=== PATIENT | male | born 2005 | race African-American/Black ===

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

== ENCOUNTER 2024-08-10 13:17 | Emergency (ER) | payer SELFPAY ==
--- NOTE | 2024-08-10 13:25 | ED.PDOC ---
General HPI Comments 19 y/o M, brought in by ambulance presents to the ED for CC of body pain. Patient states, that he has been experiencing body-aches with associated symptoms of nausea, vomiting ,and diarrhea xdays. Patient comments on, new symptoms of testicular pain and swelling starting today (08/10/24). Patient relays, that he tried masturbating to relieve new on set symptoms; provided no relief relays sperm to be odd in color. Patient does endorse having sexual in tercourse a couple of days ago and is unsure if symptoms my be caused by this. Patient denies hematuria, dysuria, SOB, or flank pain. No other symptoms or modifying factors at this time. Time Seen by MD: 13:20 Primary Care Provider: GABBY Reviewed notes: Nurses Notes, Business Change Manager Notes, Medications, Allergies Allergies: Coded Allergies: Penicillins (Verified Allergy, Unknown, 05/22/22) Home Meds Active Scripts Ibuprofen Micronized (MOTRIN TABLET) 600 Mg Tb, 600 MG PO TID PRN for 3 Days, #9 TAB *Black box warning-NSAIDS can increase risk of WI & hypertension, GI irritation, ulceration, bleed, perferation. Do not use post cardiac surgery. Use short duration/lowest effective dose. Prov:CURT SAUCEDA MD 08/10/24 Oxycodone W/ Acetaminophen (Percocet 5/325MG) 1 Tab Tb, 1 TAB PO BID for 7 Days, #14 TAB Prov:MICHELE VERONICA MD 06/25/22 Hydrocodone-Acetaminophen (Hydrocodone/Acetaminophen 5-325 mg) 1 Tab Tab, 1 TAB PO BID for 7 Days, #14 TAB Prov:MICHELE VERONICA MD 06/25/22 Reported Medications Acetaminophen W/ Codeine (Tylenol/Codeine #3) #3 Tab 10/30/11 Information Source: Patient, Emergency Med Personnel Mode of Arrival: EMS Severity: Mild Timing: Days Duration: Intermittent Prehospital treatment: None Onset: Following sexual contact Symptoms: None History of: None Location: None Penile discharge: None Modifying factors: None associated signs and symptoms: None Past Medical History PAST MEDICAL HISTORY: Denies Surgical History: Denies all surgeries Family History Family History: Reviewed,noncontributory to illness Social History Smoker: Non-Smoker Alcohol: Denies ETOH Use Drugs: Denies Drug Use Lives In: Home Constitutional: denies: chills, diaphoresis, fatigue, fever, malaise, sweats, weakness, others EENTM: denies: blurred vision, double vision, ear bleeding, ear discharge, ear drainage, ear pain, ear ringing, eye pain, eye redness, hearing loss, mouth pain, mouth swelling, nasal discharge, nose bleeding, nose congestion, nose pain, photophobia, tearing, throat pain, throat swelling, voice changes, others Respiratory: denies: cough, hemoptysis, orthopnea, SOB at rest, shortness of breath, SOB with excertion, stridor, wheezing, others Cardiovascular: denies: chest pain, dizzy spells, diaphoresis, Dyspnea on exertion, edema, irregular heart beat, left arm pain, lightheadedness, palpitations, PND, syncope, others Gastrointestinal: denies: abdomen distended, abdominal pain, blood streaked bowels, constipated, diarrhea, dysphagia, difficulty swallowing, hematemesis, melena, nausea, poor appetite, poor fluid intake, rectal bleeding, rectal pain, vomiting, others Genitourinary: reports: testicle pain, testicle swelling; denies: burning, dysuria, flank pain, frequency, hematuria, incontinence, penile discharge, penile sore, pain, urgency, others Neurological: denies: dizziness, fainting, headache, left sided numbness, left sided weakness, numbness, paresthesia, pre-existing deficit, right sided numbness, right sided weakness, seizure, speech problems, tingling, tremors, weakness, others Musculoskeletal: denies: back pain, gout, joint pain, joint swelling, muscle pain, muscle stiffness, neck pain, others Integumetry: denies: bruises, change in color, change in hair/nails, dryness, laceration, lesions, lumps, rash, wounds, others Allergic/Immunocompromised: denies: Difficulty Healing, Frequent Infections, Hives, Itching, others Hematologic/Lymphatic: denies: anemia, blood clots, easy bleeding, easy bruising, swollen glands, others Endocrine: denies: excessive hunger, excessive sweating, excessive thirst, excessive urination, flushing, intolerance to cold, intolerance to heat, unexplained weight gain, unexplained weight loss, others Psychiatric: denies: anxiety, bipolar disorder, depression, hopeless, panic disorder, schizophrenia, sleepless, suicidal, others All Other Systems: Reviewed and Negative Physical Exam General Appearance: Moderate Distress HEENT: Normal ENT Inspection, Pharynx Normal, TMs Normal Neck: Full Range of Motion, Non-Tender, Normal, Normal Inspection Respiratory: Chest Non-Tender, Lungs Clear, No Accessory Muscle Use, No Respiratory Distress, Normal Breath Sounds Cardiovascular: No Edema, No JVD, No Murmur, No Gallop, Normal Peripheral Pulses, Regular Rate/Rhythm Breast Exam: Deferred Gastrointestinal: No Organomegaly, Non Tender, No Pulsatile Mass, Normal Bowel Sounds, Soft Genitalia: Deferred Pelvic: Deferred Rectal: Deferred Extremities: No calf tenderness, Normal capillary refill, Normal inspection, Normal range of motion, Non-tender, No pedal edema Musculoskeletal : Apperance: Normal Neurologic: Alert, procedural nurse II-XII nml as Tested, No Motor Deficits, Normal Affect, Normal Mood, No Sensory Deficits Cerebellar Function: Normal Reflexes: Normal Skin: Dry, Normal Color, Warm Peripheral Pulses: 3+ Radial (R), 3+ Radial (L) Lymphatic: No Adenopathy Was a procedure done? Was a procedure done?: No Differential Diagnosis Kidney stone (Female): Musculoskeletal pain, Urinary obstruction, Urolithiasis Penile/Scrotal: STD, UTI, Hydrocele, Testicular Torsion, Urolithiasis, Urinary Retention X-Ray, Labs, Meds, VS Patient alert. Complaining of testicular pain. Vitals stable. Answering all questions. No sign of any distress. Moving all extremities. Abdomen is soft nontender. Was given prescription of Motrin. Explained to the patient. Was told to follow up with his primary care physician. Was told to come back if there is any problem. Time of 1ST Reevaluation: 13:50 Reevaluation 1ST: Improved Patient Education/Counseling: Diagnosis, Treatment Family Education/Counseling: No Family Present Departure 1 Departure Time of Disposition: 15:02 Impression: Primary Impression: Sickle cell disease Qualified Codes: D57.00 - Hb-SS disease with crisis, unspecified Additional Impression: Inguinal strain Qualified Codes: S76.219S - Strain of adductor muscle, fascia and tendon of unspecified thigh, sequela Disposition: 07 LEFT AWOL/ELOPED Admit to: Med Surg Condition: Guarded e-Prescriptions Ibuprofen Micronized (MOTRIN TABLET) 600 Mg Tb 600 MG PO TID PRN for 3 Days, #9 TAB *Black box warning-NSAIDS can increase risk of WI & hypertension, GI irritation, ulceration, bleed, perferation. Do not use post cardiac surgery. Use short duration/lowest effective dose. Prov: CURT SAUCEDA MD 08/10/24 Critical Care Note Critical Care Time?: No Stability Stability form required: No Heart Score Heart Score: Heart Score Response (Comments) Value History N/A 0 EKG N/A 0 Age N/A 0 Risk Factors N/A 0 Troponin N/A 0 Total 0 I personally scribed for CURT SAUCEDA MD ([email or web address]) on 08/10/24 at 13:25. Electronically submitted by Cynthia Abdi ([employer]). I personally scribed for CURT SAUCEDA MD ([email or web address]) on 08/10/24 at 13:35. Electronically submitted by Cynthia Abdi ([employer]). I personally scribed for CURT SAUCEDA MD ([email or web address]) on 08/10/24 at 13:35. Electronically submitted by Cynthia Abdi ([email or web address]). CURT SAUCEDA MD Aug 10, 2024 13:25
[2024-08-10] MEDS ORDERED: KETOROLAC TROMETH 60MG/2ML VIAL IM ONE (13:30)
[2024-08-10] MEDS ORDERED: IBU600T PO (15:02)
== END 2024-08-10 13:50 | disposition left against medical advice (07) ==
LOC: EDBD 13:17 → ER 13:17
DX: D57.00 Hb-SS disease with crisis, unspecified (principal); S39.011A Strain of muscle, fascia and tendon of abdomen, initial encounter; Z88.0 Allergy status to penicillin; Z79.899 Other long term (current) drug therapy; X58.XXXA Exposure to other specified factors, initial encounter; Y93.89 Activity, other specified; Y92.89 Other specified places as the place of occurrence of the external cause; Y99.8 Other external cause status

== ENCOUNTER 2024-08-10 15:52 | Inpatient (IN) | payer SELFPAY ==
[~2024-08-10] VITALS: Ht 182.9 cm; Wt 27.2 kg
[~2024-08-10 15:52] MED LIST changes: +IBU600T PO
--- NOTE | 2024-08-10 16:19 | ED.PDOC ---
History of Present Illness HPI Comments 19-year-old male presents with a chief complaint of testicle pain and fatigue x 1 week. Patient reports that his pain is localized to his bilateral testicles, is made worse with movement and palpation of testicles, and rates his pain a 9/10. Patient reports that he has sickle cell anemia and is currently feeling extremely tired. Patient denies any blood transfusions in the past. No other symptoms or modifying factors present at this time. Chief Complaint: Testicle Pain Time Seen by MD: 16:14 Primary Care Provider: GABBY Reviewed Notes: Nurses Notes, Medications, Allergies Allergies: Coded Allergies: Penicillins (Verified Allergy, Unknown, 05/22/22) Home Meds Active Scripts Ibuprofen Micronized (MOTRIN TABLET) 600 Mg Tb, 600 MG PO TID PRN for 3 Days, #9 TAB *Black box warning-NSAIDS can increase risk of NV & hypertension, GI irritation, ulceration, bleed, perferation. Do not use post cardiac surgery. Use short duration/lowest effective dose. Prov:CURT SAUCEDA MD 08/10/24 Oxycodone W/ Acetaminophen (Percocet 5/325MG) 1 Tab Tb, 1 TAB PO BID for 7 Days, #14 TAB Prov:MICHELE VERONICA MD 06/25/22 Hydrocodone-Acetaminophen (Hydrocodone/Acetaminophen 5-325 mg) 1 Tab Tab, 1 TAB PO BID for 7 Days, #14 TAB Prov:MICHELE VERONICA MD 06/25/22 Reported Medications Acetaminophen W/ Codeine (Tylenol/Codeine #3) #3 Tab 10/30/11 Information Source: Patient Mode of Arrival: Ambulatory Severity: Moderate Timing: Weeks Duration: Since onset Prehospital treatment: None Past Medical History PAST MEDICAL HISTORY: Anemia Past Medical History (Other): SICKLE CELL Surgical History: Denies all surgeries Family History Family History: Reviewed,noncontributory to illness Social History Smoker: Cigarettes Alcohol: Occasionally Drugs: Marijuana Lives In: Home Constitutional: reports: fatigue; denies: chills, diaphoresis, fever, malaise, sweats, weakness, others EENTM: denies: blurred vision, double vision, ear bleeding, ear discharge, ear drainage, ear pain, ear ringing, eye pain, eye redness, hearing loss, mouth pain, mouth swelling, nasal discharge, nose bleeding, nose congestion, nose pain, photophobia, tearing, throat pain, throat swelling, voice changes, others Respiratory: denies: cough, hemoptysis, orthopnea, SOB at rest, shortness of breath, SOB with excertion, stridor, wheezing, others Cardiovascular: denies: chest pain, dizzy spells, diaphoresis, Dyspnea on exertion, edema, irregular heart beat, left arm pain, lightheadedness, palpit ations, PND, syncope, others Gastrointestinal: denies: abdomen distended, abdominal pain, blood streaked b owels, constipated, diarrhea, dysphagia, difficulty swallowing, hematemesis, melena, nausea, poor appetite, poor fluid intake, rectal bleeding, rectal pain, vomiting, others Genitourinary: reports: testicle pain; denies: burning, dysuria, flank pain, frequency, hematuria, incontinence, penile discharge, penile sore, pain, testicle swelling, urgency, others Neurological: denies: dizziness, fainting, headache, left sided numbness, left sided weakness, numbness, paresthesia, pre-existing deficit, right sided numbness, right sided weakness, seizure, speech problems, tingling, tremors, weakness, others Musculoskeletal: denies: back pain, gout, joint pain, joint swelling, muscle pain, muscle stiffness, neck pain, others Integumetry: denies: bruises, change in color, change in hair/nails, dryness, laceration, lesions, lumps, rash, wounds, others Allergic/Immunocompromised: denies: Difficulty Healing, Frequent Infections, Hives, Itching, others Hematologic/Lymphatic: denies: anemia, blood clots, easy bleeding, easy bruising, swollen glands, others Endocrine: denies: excessive hunger, excessive sweating, excessive thirst, excessive urination, flushing, intolerance to cold, intolerance to heat, unexplained weight gain, unexplained weight loss, others Psychiatric: denies: anxiety, bipolar disorder, depression, hopeless, panic di sorder, schizophrenia, sleepless, suicidal, others All Other Systems: Reviewed and Negative Physical Exam General Appearance: Moderate Distress HEENT: Pale Conjuntivae (L), Pale Conjuntivae (R), Pharynx Normal, TMs Normal Neck: Full Range of Motion, Non-Tender, Normal, Normal Inspection Respiratory: Chest Non-Tender, Lungs Clear, No Accessory Muscle Use, No Respiratory Distress, Normal Breath Sounds Cardiovascular: No Edema, No JVD, No Murmur, No Gallop, Normal Peripheral Pulses, Regular Rate/Rhythm Breast Exam: Deferred Gastrointestinal: No Organomegaly, Non Tender, No Pulsatile Mass, Normal Bowel Sounds, Soft Genitalia: Deferred Pelvic: Deferred Rectal: Deferred Extremities: No calf tenderness, Normal capillary refill, Normal inspection, Normal range of motion, Non-tender, No pedal edema Musculoskeletal : Apperance: Normal Neurologic: Alert, linux kernel developer II-XII nml as Tested, Motor Weakness, Normal Affect, Normal Mood, No Sensory Deficits Cerebellar Function: Normal Reflexes: Normal Skin: Dry, Pallor, Warm Lymphatic: No Adenopathy Was a procedure done? Was a procedure done?: No Differential Dx Considerations may include: Sickle cell crisis, UTI X-Ray, Labs, Meds, VS Vital Signs Date Time Temp Pulse Resp B/P (MAP) Pulse Ox O2 Delivery O2 Flow Rate FiO2 08/10/24 16:55 99.2 67 18 115/76 (89) 97 Lab Test 08/10/24 16:31 Range/Units White Blood Count 14.2 H 4.4-10.8 10^3/uL Red Blood Count 3.77 L 4.5-5.90 10^6/uL Hemoglobin 10.6 L 13.5-17.5 g/dL Hematocrit 31.4 L 41.0-53.0 % Mean Corpuscular Volume 83.3 80.0-100.0 fL Mean Corpuscular Hemoglobin 28.1 28.0-32.0 pg Mean Corpuscular Hemoglobin Concent 33.7 32.0-36.0 g/dL Red Cell Distribution Width 16.2 H 11.8-14.3 % Platelet Count 285 140-450 10^3/uL Mean Platelet Volume 9.1 6.9-10.8 fL Neutrophils (%) (Auto) 57.9 37.0-80.0 % Lymphocytes (%) (Auto) 22.9 10.0-50.0 % Monocytes (%) (Auto) 16.9 H 0.0-12.0 % Eosinophils (%) (Auto) 1.6 0.0-7.0 % Basophils (%) (Auto) 0.7 0.0-2.0 % Neutrophils # (Auto) 8.3 1.6-8.6 10 ^3/uL Lymphocytes # (Auto) 3.3 0.4-5.4 10 ^3/uL Monocytes # (Auto) 2.4 H 0-1.3 10 ^3/uL Eosinophils # (Auto) 0.2 0-0.8 10 ^3/uL Basophils # (Auto) 0.1 0-0.2 10 ^3/uL Nucleated Red Blood Cells 0.2 % Reticulocyte Count (auto) 0.31 L 0.5-1.5 % Sodium Level 133 L 136-145 mmol/L Potassium Level 4.3 3.5-5.1 mmol/L Chloride Level 99 98-107 mmol/L Carbon Dioxide Level 26 20-31 mmol/L Anion Gap 8 5-15 Blood Urea Nitrogen 21 9-23 mg/dL Creatinine 1.32 H 0.700-1.30 mg/dL Glomerular Filtration Rate Calc 79 >90 mL/min BUN/Creatinine Ratio 15.9 10.0-20.0 Serum Glucose 94 74-106 mg/dL Calcium Level 9.4 8.7-10.4 mg/dL Testicular Ultrasound Impression: Bilateral varicoceles otherwise unremarkable study The patient's CBC shows an elevated white blood cell count of 14.2 The rest of the CBC shows anemia with a hemoglobin of 10.6 and hematocrit of 31.4 The platelets are 285 The reticulocyte count is 0.31 At this time, the patient is being admitted with a diagnosis of sickle cell crisis The patient was given morphine for the pain and Zofran for the nausea The patient was being given normal saline at 1 L bolus Time of 1ST Reevaluation: 16:44 Reevaluation 1ST: Unchanged Patient Education/Counseling: Diagnosis, Treatment, Prognosis Family Education/Counseling: Diagnosis, Treatment, Prognosis Departure 1 Departure Time of Disposition: 18:58 Impression: Primary Impression: Sickle cell pain crisis Disposition: ADMITTED INPATIENT Admit to: Med Surg Condition: Fair Critical Care Note Critical Care Time?: No Stability Stability form required: No Heart Score Heart Score: Heart Score Response (Comments) Value History N/A 0 EKG N/A 0 Age N/A 0 Risk Factors N/A 0 Troponin N/A 0 Total 0 I personally scribed for CALLIE NEWMAN MD ([email or web address]) on 08/10/24 at 16:19. Electronically submitted by Obi Gómez ([email or web address]). I personally scribed for CALLIE NEWMAN MD ([email or web address]) on 08/10/24 at 18:31. Electronically submitted by Obi Gómez ([email or web address]). CALLIE NEWMAN MD Aug 10, 2024 16:19
[2024-08-10 17:05] LABS: Chloride 99 mmol/L (98-107); Potassium 4.3 mmol/L (3.5-5.1)
[2024-08-10 17:06] LABS: Anion Gap 8 (5-15); Calcium 9.4 mg/dL (8.7-10.4); Carbon Dioxide 26 mmol/L (20-31)
[2024-08-10 17:11] LABS: BUN/Creatinine Ratio 15.9 (10.0-20.0); Blood Urea Nitrogen 21 mg/dL (9-23); Glucose 94 mg/dL (74-106)
[2024-08-10 17:14] LABS: Sodium 133 mmol/L (136-145)
[2024-08-10 17:21] LABS: Basophils # (auto) 0.1 10 ^3/uL (0-0.2); Basophils % (auto) 0.7 % (0.0-2.0); Eosinophils # (auto) 0.2 10 ^3/uL (0-0.8); Eosinophils % (auto) 1.6 % (0.0-7.0); Hematocrit 31.4 % (41.0-53.0); Hemoglobin 10.6 g/dL (13.5-17.5); Lymphocytes # (auto) 3.3 10 ^3/uL (0.4-5.4); Lymphocytes % (auto) 22.9 % (10.0-50.0); Mean Corpuscular Hemoglobin 28.1 pg (28.0-32.0); Mean Corpuscular Hgb Conc. 33.7 g/dL (32.0-36.0); Mean Corpuscular Volume 83.3 fL (80.0-100.0); Monocytes # (auto) 2.4 10 ^3/uL (0-1.3); Monocytes % (auto) 16.9 % (0.0-12.0); Neutrophils # (auto) 8.3 10 ^3/uL (1.6-8.6); Neutrophils % (auto) 57.9 % (37.0-80.0); Nucleated Red Blood Cells % 0.2 %; Platelet Count (auto) 285 10^3/uL (140-450); Red Blood Cells 3.77 10^6/uL (4.5-5.90); Red Cell Distribution Width 16.2 % (11.8-14.3); White Blood Cell 14.2 10^3/uL (4.4-10.8)
--- NOTE | 2024-08-10 17:47 | DVH ---
CLINICAL INFORMATION: 19 years old, Male; pain. TECHNIQUE: Grayscale sonographic imaging of the testicles and scrotal contents was performed , zina antolin by color doppler technique. Duplex doppler ultrasound of both testicles was performed. COMPARISON: None FINDINGS: Echogenicity of the kidneys is within normal limits bilaterally. Vascular flow in the kidneys appears to be normal. Right testicle measures 4 X 2.3 x 2.55 cm there are no focal lesions in the right kidney There appears to be a right inguinal varicocele that response to Valsalva maneuver Left testicle measures 3.45 x 2.32.5 cm there is normal vascular flow left epididymis measures 1.1 cm there appears to be a varicocele adjacent to the inferior pole of the left kidney right epididymis m easures 1.4 cm. . IMPRESSION: 1. Bilateral varicoceles otherwise unremarkable study
[2024-08-10] MEDS: ONDANSETRON HCL 4 MG/2 ML VIAL IV ONE ×2 (21:01→21:16)
[2024-08-10] MEDS: MORPHINE SULFATE 4 MG/ML SYR/VIAL IV ONE ×2 (21:17→22:39)
[2024-08-10] MEDS: SODIUM CHLORIDE 0.9% 1,000 ML IV ONE (21:20)
[2024-08-10 21:27] VITALS: PULSE 85; RESP 22; O2SAT 98
--- NOTE | 2024-08-10 23:26 | DVHHPRES ---
History of Present Illness Resident Creating Document: SANDIE MACARIO RESDIENT History of Present Illness This is a 19-year-old male with past medical history of sickle cell anemia came to the hospital due to right testis pain. The patient, he feels more weak, generalized body pain, back pain, and this has been since 1 week which has increased since 2 days. He also reports nausea, vomiting, shortness of breaths dysuria, frequency and urgency. Per patient he has been admitted to the hospital multiple times due to being crisis, but has not been transfused yet. He is family history of sickle cell anemia in father and mother. On physical exam right testis is more swollen and tender. ultrasound shows bilateral varicoceles, otherwise not remarkable sinus. PMHx: Sickle cell anemia Family history: Mother and father has sickle cell anemia Social history: Patient smokes cigarette, drink occasionally and smokes marijuana Home medication: Do not taking any medicine Allergic history: Penicillin Review of Systems Review of Systems General: Reports generalized body pain HEENT: No headaches, visiual changes, hearing loss, tinnitus, nasal congestion and discharge, and sore throat. Cardiovascular: Denies chest pain, palpitations, dyspnea on exertion, orthopnea, or claudication. Respiratory: Reports shortness of breath Gastrointestinal: Denies nausea, vomiting, dysphagia, odynophagia, heartburn, abdominal pain, flatulence, bloating, diarrhea, constipation, change in stool, or blood in stool. Genitourinary: Reports testicular pain Endocrine: No heat or cold intolerance, polydipsia, polyuria, and polyphagia. Neurological: No dizziness, extremity weakness and numbness, tremors, gait disturbance, seizures, and memory impairment. Psychiatric: Denies depression, anxiety,or insomnia. Musculoskeletal: Denies neck pain, stiffness and swelling, back pain, muscle weakness, joint pain, stiffness, swelling, or limited range of motion. Skin: No rashes, itching, skin lesion, changes in hair, nail, skin texture and breast. Hematologic/Lymphatic: Denies easy bruising, bleeding tendencies, or lymph node enlargement. Allergies: Coded Allergies: Penicillins (Verified Allergy, Unknown, 05/22/22) Exam Vital Signs Vital Signs Date Time Temp Pulse Resp B/P (MAP) Pulse Ox O2 Delivery O2 Flow Rate FiO2 08/10/24 21:27 85 22 98 Room Air* 0 21 08/10/24 21:17 134/74 08/10/24 21:12 97.9 97.9 Exam General Appearance: Alert, Oriented X3, Cooperative, No acute distress HEENT: Atraumatic, PERRLA, EOMI, Mucous membrane moist/pink Respiratory: Clear to auscultation, Normal air movement Cardiovascular: Regular rate, Normal S1, Normal S2, No murmurs, no chest wall tenderness Abdominal: Right testis is swollen and tender to palpation Extremities: No clubbing, No cyanosis, No edema, Normal pulses, No tenderness/swelling Skin: No rashes, No breakdown, No significant lesion Neuro: Normal gait, Normal speech, Strength at 5/5 X4 ext, Normal tone, Sensation intact, Cranial nerves 3-12 NL, Reflexes 2+ Psych/Mental Status: Mental status NL, Mood NL Labs/Xrays Labs Test 08/10/24 16:31 Range/Units White Blood Count 14.2 H 4.4-10.8 10^3/uL Red Blood Count 3.77 L 4.5-5.90 10^6/uL Hemoglobin 10.6 L 13.5-17.5 g/dL Hematocrit 31.4 L 41.0-53.0 % Mean Corpuscular Volume 83.3 80.0-100.0 fL Mean Corpuscular Hemoglobin 28.1 28.0-32.0 pg Mean Corpuscular Hemoglobin Concent 33.7 32.0-36.0 g/dL Red Cell Distribution Width 16.2 H 11.8-14.3 % Platelet Count 285 140-450 10^3/uL Mean Platelet Volume 9.1 6.9-10.8 fL Neutrophils (%) (Auto) 57.9 37.0-80.0 % Lymphocytes (%) (Auto) 22.9 10.0-50.0 % Monocytes (%) (Auto) 16.9 H 0.0-12.0 % Eosinophils (%) (Auto) 1.6 0.0-7.0 % Basophils (%) (Auto) 0.7 0.0-2.0 % Neutrophils # (Auto) 8.3 1.6-8.6 10 ^3/uL Lymphocytes # (Auto) 3.3 0.4-5.4 10 ^3/uL Monocytes # (Auto) 2.4 H 0-1.3 10 ^3/uL Eosinophils # (Auto) 0.2 0-0.8 10 ^3/uL Basophils # (Auto) 0.1 0-0.2 10 ^3/uL Nucleated Red Blood Cells 0.2 % Reticulocyte Count (auto) 0.31 L 0.5-1.5 % Sodium Level 133 L 136-145 mmol/L Potassium Level 4.3 3.5-5.1 mmol/L Chloride Level 99 98-107 mmol/L Carbon Dioxide Level 26 20-31 mmol/L Anion Gap 8 5-15 Blood Urea Nitrogen 21 9-23 mg/dL Creatinine 1.32 H 0.700-1.30 mg/dL Glomerular Filtration Rate Calc 79 >90 mL/min BUN/Creatinine Ratio 15.9 10.0-20.0 Serum Glucose 94 74-106 mg/dL Calcium Level 9.4 8.7-10.4 mg/dL Assessment/Plan Assessment/Plan Sickle cell crisis History of sickle cell anemia IV fluid IV morphine p.r.n. Tylenol next Testicular pain, possible orchitis Bilateral varicoceles IV antibiotic Marijuana use disorder Current smoker DIET: Regular diet CODE STATUS: Full code DISPOSITION: Med surge Patient's status and paln discussed with the patient. Case discussed with Dr. Bolton. Plan discussed with: Patient, Other My Orders Orders - SANDIE MACARIO RESDISARTHAK Procedure Category Date Status Time Admit ADMIT 08/10/24 Transmitted 23:25 Stat Ekg For Chest NENITA 08/10/24 Transmitted Pain 23:25 Notify Of Changes NENITA 08/10/24 Transmitted From Base 23:25 Date of Service: Aug 11, 2024 Billing Provider: CELSA BOLTON MD Common Visit Codes: [id number] INP/OBS CARE (HIGH) SANDIE MACARIO RESDIENT Aug 10, 2024 23:26 CELSA BOLTON MD Aug 14, 2024 18:20
[2024-08-11] MEDS: SODIUM CHLORIDE 0.9% 1,000 ML IV ONE ×2 (03:01→04:01)
[2024-08-11 03:43] LABS: Basophils # (auto) 0.1 10 ^3/uL (0-0.2); Basophils % (auto) 0.6 % (0.0-2.0); Eosinophils # (auto) 0.3 10 ^3/uL (0-0.8); Hematocrit 27.3 % (41.0-53.0); Hemoglobin 9.5 g/dL (13.5-17.5); Lymphocytes % (auto) 23.2 % (10.0-50.0); Mean Corpuscular Hemoglobin 28.2 pg (28.0-32.0); Mean Corpuscular Hgb Conc. 34.6 g/dL (32.0-36.0); Mean Corpuscular Volume 81.4 fL (80.0-100.0); Monocytes # (auto) 2.8 10 ^3/uL (0-1.3); Monocytes % (auto) 16.4 % (0.0-12.0); Neutrophils # (auto) 9.9 10 ^3/uL (1.6-8.6); Neutrophils % (auto) 57.8 % (37.0-80.0); Nucleated Red Blood Cells % 0.1 %; Platelet Count (auto) 276 10^3/uL (140-450); Red Blood Cells 3.36 10^6/uL (4.5-5.90); Red Cell Distribution Width 15.9 % (11.8-14.3); White Blood Cell 17.1 10^3/uL (4.4-10.8)
[2024-08-11 03:59] LABS: Albumin 3.9 g/dL (3.2-4.8); Alkaline Phosphatase 93 U/L (46-116); Anion Gap 10 (5-15); BUN/Creatinine Ratio 13.8 (10.0-20.0); Blood Urea Nitrogen 16 mg/dL (9-23); Calcium 9.3 mg/dL (8.7-10.4); Carbon Dioxide 23 mmol/L (20-31); Chloride 101 mmol/L (98-107); Glucose 89 mg/dL (74-106); Potassium 3.9 mmol/L (3.5-5.1); Total Protein 6.9 g/dL (5.7-8.2)
[2024-08-11 04:03] LABS: Alanine Aminotransferase 79 U/L (7-40); Aspartate Aminotransferase 61 U/L (13-40); Bilirubin, Total 1.4 mg/dL (0.2-1.0); Sodium 134 mmol/L (136-145)
[2024-08-11] MEDS: MORPHINE SULFATE 4 MG/ML SYR/VIAL IV PRN (04:57)
[2024-08-11] MEDS: cefTRIAXone 1GM/50ML D5W 50 ML IV ONE (04:57)
[2024-08-11] MEDS: cefTRIAXone 1GM/50ML D5W 50 ML IV SCH (04:58)
[2024-08-11] MEDS ORDERED: ACETAMINOPHEN 325 MG TAB PO PRN (06:00)
--- NOTE | 2024-08-11 06:16 | DVH ---
EXAM: XR Chest, 1 View CLINICAL INDICATION: Pneummonia TECHNIQUE: Frontal view of the chest. COMPARISON: CHEST XRAY 1 VIEW on DOS: 06/24/22, CXR1 on DOS: 06/24/22 FINDINGS: LUNGS AND PLEURAL SPACES: Unremarkable. No consolidation. No pneumothorax. HEART: Unremarkable. No cardiomegaly. MEDIASTINUM: Unremarkable. Normal mediastinal contour. BONES/JOINTS: Unremarkable. No acute fracture. OTHER FINDINGS: . None. . . .. IMPRESSION: No acute cardiopulmonary process.
[2024-08-11 07:28] LABS: COVID19 ANTIGEN SOFIA FIA NEGATIVE (NEGATIVE); Rapid Influenza A Negative (Negative); Rapid Influenza B Negative (Negative)
[2024-08-11 08:32] LABS: Hepatitis B Surface Antigen Negative (Negative)
[2024-08-11 08:40] VITALS: BP 107/68; PULSE 79; RESP 18; TEMP 98.1; O2SAT 98
[2024-08-11 08:57] LABS: Hepatitis A Ab IgM Negative; Hepatitis B Core IgM Negative (Negative); Hepatitis C Antibody Negative (Negative)
[2024-08-11 09:00] VITALS: BP 107/68; PULSE 79; RESP 18; TEMP 98.1; O2SAT 98
[2024-08-11 10:24] LABS: Urine Bacteria FEW /hpf (None Seen); Urine Blood Negative /uL (Negative); Urine Color Yellow (Yellow); Urine Protein, UAD Negative (Negative); Urine Specific Gravity 1.005 (1.001-1.035); Urine Squamous Epithelial Cell None Seen /hpf (<5); Urine Urobilinogen 2 mg/dL (Negative); Urine WBC 146 /HPF (0-3); Urine pH 6.5 (5.0-9.0)
[2024-08-11 10:25] LABS: Urine Clarity Cloudy (Clear)
[2024-08-11 10:33] LABS: Opiate Scree,Urine Neg (NEGATIVE)
[2024-08-11 10:34] LABS: Cannabinoid Screen, Urine Neg (NEGATIVE)
[2024-08-11 10:42] LABS: Amphetamine Screen, Urine Neg (NEGATIVE); Barbiturate Scree,Urine Neg (NEGATIVE); Benzodiazephine Screen, Urine Neg (NEGATIVE); Cocaine Screen, Urine Neg (NEGATIVE); Phencyclidine Screen, Urine Neg (NEGATIVE)
--- NOTE | 2024-08-11 11:03 | DVHPNRES ---
Progress Note Date Seen: Aug 11, 2024 Resident Creating Document: IVIS SOLANO RESIDENT Medical Necessity Reason Pt with a Central, PICC or Fol: No Medical Necessity Reason Bilateral scrotal swelling Subjective Review of Systems This is a 19-year-old homosexual male with a past medical history of sickle cell anemia presented to the ED with scrotal swelling. According to the patient the scrotal swelling started on the left side of the scrotum gradually increasing in size. The patient did not take it seriously and did nothing. Then the right scrotum became involved. Patient took Tylenol without much improvement and then few days later he started having generalized pain from his sickle cell pain crisis thus prompting him to come to the ED. Per patient he has been admitted to the hospital multiple times due to being crisis, but has not been transfused yet. He also reports nausea, vomiting, shortness of breaths dysuria, frequency and urgency. Patient also mentioned that he is sexually active and his last sexual encounter was a week and half ago. Initial vitals were temperature 99.2 pulse 67 respiratory 16 blood pressure 115/76. blood work revealed WBC of 14.2 with hemoglobin of 10.6. Blood sodium of 133 creatinine of 1.32 with GFR of 79. Total bilirubin 1.4 AST 61 ALT 79. urinalysis positive for UTI. Influenza a and B antigen negative COVID negative HIV pending and other sexually transmitted in reasons pending. US of the scrotum revealed Bilateral varicoceles. Review of systems General: Reports generalized body pain HEENT: No headaches, visiual changes, hearing loss, tinnitus, nasal congestion and discharge, and sore throat. Cardiovascular: Denies chest pain, palpitations, dyspnea on exertion, orthopnea, or claudication. Respiratory: Reports shortness of breath Gastrointestinal: Denies nausea, vomiting, dysphagia, odynophagia, heartburn, abdominal pain, flatulence, bloating, diarrhea, constipation, change in stool, or blood in stool. Genitourinary: Reports testicular pain Endocrine: No heat or cold intolerance, polydipsia, polyuria, and polyphagia. Neurological: No dizziness, extremity weakness and numbness, tremors, gait disturbance, seizures, and memory impairment. Psychiatric: Denies depression, anxiety,or insomnia. Musculoskeletal: Denies neck pain, stiffness and swelling, back pain, muscle weakness, joint pain, stiffness, swelling, or limited range of motion. Skin: No rashes, itching, skin lesion, changes in hair, nail, skin texture and breast. Hematologic/Lymphatic: Denies easy bruising, bleeding tendencies, or lymph node enlargement. Objective vital signs Vital Sign Date Time Temp Pulse Resp B/P (MAP) Pulse Ox O2 Delivery O2 Flow Rate FiO2 08/11/24 08:40 Room Air* 0 21 08/11/24 08:40 98.1 79 18 107/68 (81) 98 98.1 Total Intake and Output 08/10/24 08/10/24 08/11/24 15:00 23:00 07:00 Intake Total 2000 ml Balance 2000 ml medications Current Medications Medications Dose Ordered Sig/Cruz Route Start Time Stop Time Status Last Admin Dose Admin Acetaminophen 650 mg Q6HP PRN PO 08/11/24 06:00 Acetaminophen/ Hydrocodone Bitart 1 tab Q4HP PRN PO 08/11/24 05:00 Morphine Sulfate 4 mg Q4HPRN PRN IV 08/11/24 05:00 08/11/24 04:57 4 MG Ceftriaxone Sodium 50 ml @ 100 mls/hr Q24H IV 08/11/24 05:00 Examination General Appearance: Alert, Oriented X3, Cooperative, Mild distress. HEENT: Atraumatic, PERRLA, EOMI, Mucous membrane moist/pink Respiratory: Clear to auscultation, Normal air movement Cardiovascular: Regular rate, Normal S1, Normal S2, No murmurs, no chest wall tenderness Abdominal: NO distention, no tenderness, bowel sounds present, no scars noted Scrotum: Bilateral edema, mild erythema and tender on palpation. Extremities: No clubbing, No cyanosis, No edema, Normal pulses, No tenderness/swelling Skin: No rashes, No breakdown, No significant lesion Neuro: Normal gait, Normal speech, Strength at 5/5 X4 ext, Normal tone, Sensation intact, Cranial nerves 3-12 NL, Reflexes 2+ Psych/Mental Status: Mental status NL, Mood NL laboratory and microbiology Laboratory Tests 08/11/24 03:20 Test 08/11/24 03:20 Range/Units Serum Glucose 89 74-106 mg/dL Problem List/Assessment/Plan Problem List/Assessment/Plan Assessment Epididymitis Painful Bilateral varicocele Sickle cell pain crisis UTI Hyponatremia leukocytosis History of Marijuana use disorder Plan Adequate hydration Pain medication morphine, [place] Antibiotics Ceftriaxone Urology consult stat elevate the scrotum Code status: full Goal of care discussed for more than 35 minutes Case and plan discussed with Dr. Anthony Plan discussed with: Patient My Orders My Orders Orders - IVIS SOLANO Procedure Category Date Status Time * Urology Consult CONS 08/11/24 Transmitted 10:33 Date of Service: Aug 11, 2024 Billing Provider: DEJA ANTHONY MD Common Visit Codes: [id number] INP/OBS CARE(HIGH) IVIS SOLANO Aug 11, 2024 11:03 DEJA ANTHONY MD Aug 12, 2024 05:06
--- NOTE | 2024-08-11 11:21 | DVHINCON2 ---
Date of service: Aug 11, 2024 Referring Physician ER Reason for Consultation Stat urology consultation is requested for this patient with sickle cell crisis and scrotal pain with findings of varicoceles on ultrasound and no testicular torsion History of Present Illness 19-year-old male with past medical history of sickle cell anemia came to the hospital due to right testis pain. The patient, he feels more weak, generalized body pain, back pain, and this has been since 1 week which has increased since 2 days. He also reports nausea, vomiting, shortness of breaths dysuria, frequency and urgency. Per patient he has been admitted to the hospital multiple times du e to being crisis, but has not been transfused yet. He is family history of sickle cell anemia in father and mother. On physical exam right testis is more swollen and tender. ultrasound shows bilateral varicoceles, otherwise not remarkable sinus. Past Medical History Sickle cell anemia Family History: Patient reports no known family medical history. Family History Mother and father has sickle cell anemia Social History Patient smokes cigarette, drink occasionally and smokes marijuana Home medication: Do not taking any medicine Allergies: Coded Allergies: Penicillins (Verified Allergy, Unknown, 05/22/22) Home Meds Reported Medications Acetaminophen W/ Codeine (Tylenol/Codeine #3) #3 Tab 10/30/11 Current Medications Current Medications Medications (Trade) Dose Ordered Sig/Cruz Route PRN Reason Start Time Stop Time Status Last Admin Acetaminophen (Tylenol Tablet) 650 mg Q6HP PRN PO MILD PAIN (1-3 PAIN SCALE) 08/11/24 06:00 Acetaminophen/ Hydrocodone Bitart ([place] 7.5/325MG Tab) 1 tab Q4HP PRN PO MODERATE PAIN (4-6 PAIN SCALE) 08/11/24 05:00 Morphine Sulfate 4 mg Q4HPRN PRN IV SEVERE PAIN (7-10 PAIN SCALE) 08/11/24 05:00 08/11/24 04:57 Ceftriaxone Sodium 50 ml @ 100 mls/hr Q24H IV 08/11/24 05:00 Review of Systems General: Reports generalized body pain HEENT: No headaches, visiual changes, hearing loss, tinnitus, nasal congestion and discharge, and sore throat. Cardiovascular: Denies chest pain, palpitations, dyspnea on exertion, orthopnea, or claudication. Respiratory: Reports shortness of breath Gastrointestinal: Denies nausea, vomiting, dysphagia, odynophagia, heartburn, abdominal pain, flatulence, bloating, diarrhea, constipation, change in stool, or blood in stool. Genitourinary: Reports testicular pain Endocrine: No heat or cold intolerance, polydipsia, polyuria, and polyphagia. Neurological: No dizziness, extremity weakness and numbness, tremors, gait disturbance, seizures, and memory impairment. Psychiatric: Denies depression, anxiety,or insomnia. Musculoskeletal: Denies neck pain, stiffness and swelling, back pain, muscle weakness, joint pain, stiffness, swelling, or limited range of motion. Skin: No rashes, itching, skin lesion, changes in hair, nail, skin texture and breast. Hematologic/Lymphatic: Denies easy bruising, bleeding tendencies, or lymph node enlargement. Allergies: Coded Allergies: Penicillins (Verified Allergy, Unknown, 05/22/22) Vital Signs Vital Signs Date Time Temp Pulse Resp B/P (MAP) Pulse Ox O2 Delivery O2 Flow Rate FiO2 08/11/24 08:40 Room Air* 0 21 08/11/24 08:40 98.1 79 18 107/68 (81) 98 98.1 Physical Exam Vital Signs Date Time Temp Pulse Resp B/P (MAP) Pulse Ox O2 Delivery O2 Flow Rate FiO2 08/10/24 21:27 85 22 98 Room Air* 0 21 08/10/24 21:17 134/74 08/10/24 21:12 97.9 97.9 Exam General Appearance: Alert, Oriented X3, Cooperative, No acute distress HEENT: Atraumatic, PERRLA, EOMI, Mucous membrane moist/pink Respiratory: Clear to auscultation, Normal air movement Cardiovascular: Regular rate, Normal S1, Normal S2, No murmurs, no chest wall tenderness Abdominal: Right testis is swollen and tender to palpation Extremities: No clubbing, No cyanosis, No edema, Normal pulses, No tenderness/swelling Skin: No rashes, No breakdown, No significant lesion Neuro: Normal gait, Normal speech, Strength at 5/5 X4 ext, Normal tone, Sensation intact, Cranial nerves 3-12 NL, Reflexes 2+ Psych/Mental Status: Mental status NL, Mood NL Labs/Diagnostic Data Labs Test 08/11/24 10:00 08/11/24 06:30 08/11/24 03:20 08/10/24 16:31 Range/Units Urine Color Yellow Yellow Urine Clarity Cloudy H Clear Urine pH 6.5 5.0-9.0 Urine Specific [place] 1.005 1.001-1.035 Urine Protein Negative Negative Urine Ketones Negative Negative Urine Blood Negative Negative /uL Urine Nitrite Negative Negative Urine Bilirubin Negative Negative Urine Urobilinogen 2 H Negative mg/dL Urine Leukocyte Esterase 3+ Negative /uL Urine RBC 8 0 - 3 /hpf Urine Microscopic WBC 146 H 0-3 /HPF Urine Squamous Epithelial Cells None seen <5 /hpf Urine Bacteria Few H None Seen /hpf Urine Glucose Normal Normal mg/dL Urine Opiates Screen Neg NEGATIVE Urine Fentanyl Screen Neg NEGATIVE Urine Barbiturates Screen Neg NEGATIVE Urine Phencyclidine Screen Neg NEGATIVE Urine Amphetamines Screen Neg NEGATIVE Urine Benzodiazepines Screen Neg NEGATIVE Urine Cocaine Screen Neg NEGATIVE Urine Cannabinoids Screen Neg NEGATIVE Influenza Type A Antigen Negative Negative Influenza Type B Antigen Negative Negative SARS-CoV-2 Antigen (Rapid) Negative NEGATIVE White Blood Count 17.1 H 4.4-10.8 10^3/uL Red Blood Count 3.36 L 4.5-5.90 10^6/uL Hemoglobin 9.5 L 13.5-17.5 g/dL Hematocrit 27.3 #L 41.0-53.0 % Mean Corpuscular Volume 81.4 80.0-100.0 fL Mean Corpuscular Hemoglobin 28.2 28.0-32.0 pg Mean Corpuscular Hemoglobin Concent 34.6 32.0-36.0 g/dL Red Cell Distribution Width 15.9 H 11.8-14.3 % Platelet Count 276 140-450 10^3/uL Mean Platelet Volume 8.5 6.9-10.8 fL Neutrophils (%) (Auto) 57.8 37.0-80.0 % Lymphocytes (%) (Auto) 23.2 10.0-50.0 % Monocytes (%) (Auto) 16.4 H 0.0-12.0 % Eosinophils (%) (Auto) 2.0 0.0-7.0 % Basophils (%) (Auto) 0.6 0.0-2.0 % Neutrophils # (Auto) 9.9 H 1.6-8.6 10 ^3/uL Lymphocytes # (Auto) 4.0 0.4-5.4 10 ^3/uL Monocytes # (Auto) 2.8 H 0-1.3 10 ^3/uL Eosinophils # (Auto) 0.3 0-0.8 10 ^3/uL Basophils # (Auto) 0.1 0-0.2 10 ^3/uL Nucleated Red Blood Cells 0.1 % Sodium Level 134 L 136-145 mmol/L Potassium Level 3.9 3.5-5.1 mmol/L Chloride Level 101 98-107 mmol/L Carbon Dioxide Level 23 20-31 mmol/L Anion Gap 10 5-15 Blood Urea Nitrogen 16 9-23 mg/dL Creatinine 1.16 0.700-1.30 mg/dL Glomerular Filtration Rate Calc 92 >90 mL/min BUN/Creatinine Ratio 13.8 10.0-20.0 Serum Glucose 89 74-106 mg/dL Calcium Level 9.3 8.7-10.4 mg/dL Magnesium Level 2.0 1.6-2.6 mg/dL Total Bilirubin 1.4 H 0.2-1.0 mg/dL Aspartate Amino Transferase (AST) 61 H 13-40 U/L Alanine Aminotransferase (ALT) 79 H 7-40 U/L Alkaline Phosphatase 93 46-116 U/L Lactate Dehydrogenase 159 120-246 U/L Total Protein 6.9 5.7-8.2 g/dL Albumin 3.9 3.2-4.8 g/dL Hepatitis A IgM Antibody Negative Hepatitis B Surface Antigen Negative Negative Hepatitis B Core IgM Antibody Negative Negative Hepatitis C Antibody Negative Negative Reticulocyte Count (auto) 0.31 L 0.5-1.5 % PATIENT: KARTIK SINGLETON ACCT: [id number] UNIT: [id number] : 2005 LOC: ER ROOM / BED: / AGE / SEX: 19 / M ADM STATUS: REG ER SERVICE 1621 ORDERING PHYSICIAN: CALLIE NEWMAN MD PROCEDURE(s): TESUS - TESTICULAR ULTRASOUND REASON: pain ORDER NUMBER(s): [id number], ACCESSION NUMBER(s): [id number] CLINICAL INFORMATION: 19 years old, Male; pain. TECHNIQUE: Grayscale sonographic imaging of the testicles and scrotal contents was performed , assisted by color doppler technique. Duplex doppler ultrasound of both testicles was performed. COMPARISON: None FINDINGS: Echogenicity of the kidneys is within normal limits bilaterally. Vascular flow in the kidneys appears to be normal. Right testicle measures 4 X 2.3 x 2.55 cm there are no focal lesions in the right kidney There appears to be a right inguinal varicocele that response to Valsalva maneuver Left testicle measures 3.45 x 2.32.5 cm there is normal vascular flow left epididymis measures 1.1 cm there appears to be a varicocele adjacent to the inferior pole of the left kidney right epididymis measures 1.4 cm. . IMPRESSION: 1. Bilateral varicoceles otherwise unremarkable study ATED BY: PASCUAL WILDE MD DICTATED DATE/TIME: 08/10/241743 SIGNED BY: PASCUAL WILDE MD SIGNED DATE/TIME: 08/10/241743 CC: PATIENT: KARTIK SINGLETON ACCT: [id number] UNIT: [id number] : 2005 LOC: OVERFLOW ROOM / BED: [address] [place] [address] / AGE / SEX: 19 / M ADM STATUS: ADM IN SERVICE 1119 ORDERING PHYSICIAN: KAYLIN TILLMAN MD PROCEDURE(s): ABPL - CT AB PEL WO CON-NO ORAL OR IV REASON: hematuria ORDER NUMBER(s): [id number], ACCESSION NUMBER(s): [id number] Exam: CT CT AB PEL WO CON-NO ORAL OR IV History: hematuria Comparison Study: None Technique: Multidetector spiral CT of the abdomen and pelvis was performed from lung bases to pubic symphysis. Imaging was performed without IV contrast. Axial, coronal and sagittal multiplanar reformats were obtained from the axial data set by the technologist. Radiation dose : Abdomen/Pelvis: CTDIvol 5 mGy, DLP 358.56 mGy*cm. Findings: Evaluation of solid organs is limited due to lack of intravenous contrast use. Lung Bases: No acute or significant lung base finding. Normal heart size. No pleural or pericardial effusion. Liver: The liver is normal in size. No focal lesions. Gallbladder and biliary Tree: Cholelithiasis noted without secondary findings of cholecystitis or biliary obstruction. Spleen: Unremarkable Pancreas: The pancreas is grossly normal in appearance. Adrenal Glands: Unremarkable Kidneys: Kidneys are grossly normal without calculi or hydronephrosis. Bladder: Grossly unremarkable for degree of distention. Bowel: The stomach is grossly normal in appearance. Small bowel and colon are normal in caliber and distribution. The appendix is not visualized; however, no secondary findings of acute appendicitis identified. Ascites: Absent Lymphadenopathy: No mesenteric, retroperitoneal or periportal lymphadenopathy. Abdominal wall and Mesentery: Unremarkable. Vasculature: The visualized abdominal aorta is normal in size and caliber. Evaluation of abdominal and pelvic vessels is limited due to lack of intravenous contrast. Pelvic Organs: Unremarkable Musculoskeletal: No aggressive focal bony lesions, acute fractures or dislocation. IMPRESSION: 1. No acute abdominal or pelvic findings. Hydronephrosis or nephrolithiasis. Cholelithiasis noted. If concern persists consider follow-up exam with contrast. Radiation optimization: All CT scans at this facility use at least one of these dose optimization techniques: Automated exposure control mA and/or kV adjustment per patient size (includes targeted exams where dose is matched to clinical indication) or iterative reconstruction. HS:Y ATED BY: AUSTIN REDD MD DICTATED DATE/TIME: 08/11/24 1255 SIGNED BY: AUSTIN REDD MD SIGNED DATE/TIME: 08/11/24 125 CC: Assessment Bilateral varicocele Right orchalgia- c/w epididymo-orchitis Hematuria-micro Plan/Recommendation Scrotal support Repeat scrotal ultrasound as needed Continue with IV antibiotics and change to oral upon discharge Plan discussed with: Patient, Other KAYLIN TILLMAN MD Aug 11, 2024 11:21
[2024-08-11 12:30] VITALS: BP 111/76; PULSE 74; RESP 20; TEMP 99.3; O2SAT 99
--- NOTE | 2024-08-11 12:57 | DVH ---
Exam: CT CT AB PEL WO CON-NO ORAL OR IV History: hematuria Comparison Study: None Technique: Multidetector spiral CT of the abdomen and pelvis was performed from lung bases to pubic symphysis. Imaging was performed without IV contrast. Axial, coronal and sagittal multiplanar reform ats were obtained from the axial data set by the technologist. Radiation dose : Abdomen/Pelvis: CTDIvol 5 mGy, DLP 358.56 mGy*cm. Findings: Evaluation of solid organs is limited due to lack of intravenous contrast use. Lung Bases: No acute or significant lung base finding. Normal heart size. No pleural or pericardial effusion. Liver: The liver is normal in size. No focal lesions. Gallbladder and biliary Tree: Cholelithiasis noted without secondary findings of cholecystitis or allen iary obstruction. Spleen: Unremarkable Pancreas: The pancreas is grossly normal in appearance. Adrenal Glands: Unremarkable Kidneys: Kidneys are grossly normal without calculi or hydronephrosis. Bladder: Grossly unremarkable for degree of distention. Bowel: The stomach is grossly normal in appearance. Small bowel and colon are normal in caliber and d istribution. The appendix is not visualized; however, no secondary findings of acute appendicitis id entified. Ascites: Absent Lymphadenopathy: No mesenteric, retroperitoneal or periportal lymphadenopathy. Abdominal wall and Mesentery: Unremarkable. Vasculature: The visualized abdominal aorta is normal in size and caliber. Evaluation of abdominal a nd pelvic vessels is limited due to lack of intravenous contrast. Pelvic Organs: Unremarkable Musculoskeletal: No aggressive focal bony lesions, acute fractures or dislocation. IMPRESSION: 1. No acute abdominal or pelvic findings. Hydronephrosis or nephrolithiasis. Cholelithiasis noted. I f concern persists consider follow-up exam with contrast. Radiation optimization: All CT scans at this facility use at least one of these dose optimization herber hniques: Automated exposure control mA and/or kV adjustment per patient size (includes targeted exams where dose is matched to clinical indication) or iterative reconstruction. HS:Y
[2024-08-11 17:00] VITALS: BP 94/53; PULSE 81; RESP 18; TEMP 98.5; O2SAT 97
[2024-08-11 19:15] VITALS: BP 113/63; PULSE 89; RESP 16; TEMP 99.4; O2SAT 97
[2024-08-11 21:00] VITALS: BP 113/63; PULSE 90; RESP 20; TEMP 99.4; O2SAT 95
[2024-08-12] VITALS (7 sets, daily range): BP systolic 112–127; BP diastolic 59–78; PULSE 74–121; RESP 17–20; TEMP 97.7–98.7; O2SAT 97–100
[2024-08-12] MEDS: HYDROcodone-ACET 7.5/325MG TAB PO PRN (05:57)
[2024-08-12 07:26] LABS: Basophils # (auto) 0.1 10 ^3/uL (0-0.2); Basophils % (auto) 0.7 % (0.0-2.0); Eosinophils # (auto) 0.6 10 ^3/uL (0-0.8); Eosinophils % (auto) 3.2 % (0.0-7.0); Hemoglobin 9.4 g/dL (13.5-17.5); Lymphocytes # (auto) 4.9 10 ^3/uL (0.4-5.4); Lymphocytes % (auto) 26.7 % (10.0-50.0); Mean Corpuscular Hemoglobin 28.4 pg (28.0-32.0); Mean Corpuscular Hgb Conc. 34.9 g/dL (32.0-36.0); Mean Corpuscular Volume 81.4 fL (80.0-100.0); Monocytes # (auto) 2.7 10 ^3/uL (0-1.3); Monocytes % (auto) 14.9 % (0.0-12.0); Neutrophils % (auto) 54.5 % (37.0-80.0); Nucleated Red Blood Cells % 0.1 %; Platelet Count (auto) 340 10^3/uL (140-450); Red Blood Cells 3.32 10^6/uL (4.5-5.90); Red Cell Distribution Width 15.9 % (11.8-14.3); White Blood Cell 18.3 10^3/uL (4.4-10.8)
[2024-08-12 07:38] LABS: Albumin 3.6 g/dL (3.2-4.8); Alkaline Phosphatase 104 U/L (46-116); Anion Gap 8 (5-15); BUN/Creatinine Ratio 12.2 (10.0-20.0); Bilirubin, Total 1.1 mg/dL (0.2-1.0); Blood Urea Nitrogen 16 mg/dL (9-23); Calcium 8.9 mg/dL (8.7-10.4); Carbon Dioxide 26 mmol/L (20-31); Chloride 104 mmol/L (98-107); Glucose 98 mg/dL (74-106); Potassium 3.9 mmol/L (3.5-5.1); Sodium 138 mmol/L (136-145); Total Protein 6.5 g/dL (5.7-8.2)
[2024-08-12 07:48] LABS: Alanine Aminotransferase 80 U/L (7-40); Aspartate Aminotransferase 55 U/L (13-40)
[2024-08-12] MEDS: SODIUM CHLORIDE 0.9% 1,000 ML IV SCH (10:56)
[2024-08-12 12:06] LABS: Chlamydia Trachomatis, NAA Negative (Negative); Neisseria gonorrhoeae, NAA Negative (Negative)
--- NOTE | 2024-08-12 16:02 | DVHPNRES ---
Progress Note Date Seen: Aug 12, 2024 Resident Creating Document: IVIS SOLANO RESIDENT Medical Necessity Reason Pt with a Central, PICC or Fol: No Medical Necessity Reason Epididymitis varicocele Subjective Review of Systems This is a 19-year-old homosexual male with a past medical history of sickle cell anemia presented to the ED with scrotal swelling. According to the patient the scrotal swelling started on the left side of the scrotum gradually increasing in size. The patient did not take it seriously and did nothing. Then the right scrotum became involved. Patient took Tylenol without much improvement and then few days later he started having generalized pain from his sickle cell pain crisis thus prompting him to come to the ED. Per patient he has been admitted to the hospital multiple times due to being crisis, but has not been transfused yet. He also reports nausea, vomiting, shortness of breaths dysuria, frequency and urgency. Patient also mentioned that he is sexually active and his last sexual encounter was a week and half ago. Initial vitals were temperature 99.2 pulse 67 respiratory 16 blood pressure 115/76. blood work revealed WBC of 14.2 with hemoglobin of 10.6. Blood sodium of 133 creatinine of 1.32 with GFR of 79. Total bilirubin 1.4 AST 61 ALT 79. urinalysis positive for UTI. Influenza A and B antigen negative COVID negative HIV pending and other sexually transmitted in reasons pending. US of the scrotum revealed Bilateral varicoceles. PN: 08/12/2024 patient is seen and examined today by the bedside. He reported feeling a lot better normal generalized body pain he is eating well he is in good spirits. Patient however still complains about the scrotal swelling. He was seen by Urology yesterday and the plan was to get CT abdomen to evaluate probably any obstruction leading to the varicocele. In terms of his lab work vitals are grossly unremarkable. However the lab shows an increased WBC up to 18.3 today also most of his serology lab work came back negative chlamydia and gonorrhea. Currently pending HIV reports. Objective vital signs Vital Sign Date Time Temp Pulse Resp B/P (MAP) Pulse Ox O2 Delivery O2 Flow Rate FiO2 08/12/24 14:03 80 18 118/70 08/12/24 13:00 98.0 100 98.0 08/12/24 08:00 Room Air* 0 21 Total Intake and Output 08/11/24 08/11/24 08/12/24 15:00 23:00 07:00 Intake Total 466 ml 50 ml Balance 466 ml 50 ml medications Current Medications Medications Dose Ordered Sig/Cruz Route Start Time Stop Time Status Last Admin Dose Admin Acetaminophen 650 mg Q6HP PRN PO 08/11/24 06:00 Acetaminophen/ Hydrocodone Bitart 1 tab Q4HP PRN PO 08/11/24 05:00 08/12/24 05:57 1 TAB Morphine Sulfate 4 mg Q4HPRN PRN IV 08/11/24 05:00 08/12/24 14:03 4 MG Ceftriaxone Sodium 50 ml @ 100 mls/hr Q24H IV 08/11/24 05:00 08/12/24 04:35 100 MLS/HR Sodium Chloride 1,000 ml @ 125 mls/hr Q8H IV 08/12/24 08:45 08/12/24 10:56 125 MLS/HR Examination General Appearance: Alert, Oriented X3, Cooperative, Mild distress. HEENT: Atraumatic, PERRLA, EOMI, Mucous membrane moist/pink Respiratory: Clear to auscultation, Normal air movement Cardiovascular: Regular rate, Normal S1, Normal S2, No murmurs, no chest wall tenderness Abdominal: NO distention, no tenderness, bowel sounds present, no scars noted Scrotum: Bilateral edema, mild erythema and tender on palpation. Extremities: No clubbing, No cyanosis, No edema, Normal pulses, No tenderness/swelling Skin: No rashes, No breakdown, No significant lesion Neuro: Normal gait, Normal speech, Strength at 5/5 X4 ext, Normal tone, Sensation intact, Cranial nerves 3-12 NL, Reflexes 2+ Psych/Mental Status: Mental status NL, Mood NL laboratory and microbiology Laboratory Tests 08/12/24 06:40 Test 08/12/24 06:40 Range/Units Serum Glucose 98 74-106 mg/dL Labs and/or images reviewed: Labs reviewed by me, Image(s) reviewed by me Problem List/Assessment/Plan Problem List/Assessment/Plan Assessment Sepsis due to Epididymitis Painful Bilateral varicocele Sickle cell pain crisis UTI MALISSA due to VMN Hyponatremia leukocytosis Marijuana use disorder Plan Adequate hydration Pain medication morphine, [place] Antibiotics Ceftriaxone IV Oral levofloxacin 500mg daily 10 days Encouraged to elevate the scrotum Urology following Counseled on marijuana use cessation for 16 minutes Code status: full Goal of care discussed for 20 minutes Case and plan discussed with Dr. Hurst Plan discussed with: Patient, Other (RN) My Orders My Orders Orders - IVIS SOLANO RESIDENT Procedure Category Date Status Time Communication Order ORDERS 08/11/24 Transmitted 19:18 Sodium Chloride 0.9% PHA 08/12/24 In Process 08:45 Addendum Addendum Addendum I was physically present for the rey portions of the service provided to patient by THE RESIDENT. I have reviewed the documentation, discussed the case with resident and agree with the resident's documentation except as noted. Also the patient's clinical case was discussed with the patient's nurse. This medical document was created using an electronic medical record system with computerized dictation system. Although this document has been carefully reviewed, there might still be some phonetic and typographical errors. These areas are purely typographical due to imperfections of the software programs, and do not reflect any compromise in the patient's medical care. Late signature. Date of Service: Aug 12, 2024 Billing Provider: TONIA HURST MD Common Visit Codes: [id number] INP/OBS CARE(HIGH) Secondary Visit Codes: [id number] CHNG SMOKING >10MIN (Counseled on marijuana use cessation for 16 minutes), [id number] CARE PLAN 30 MINUTES (20 minutes) IVIS SOLANO RESIDENT Aug 12, 2024 16:02 TONIA HURST MD Aug 13, 2024 07:24
[2024-08-12] MEDS: LACTULOSE 20Gm/30ML SOLN PO ONE (16:36)
[2024-08-12] MEDS: levoFLOXacin 500 MG TAB PO ONE (16:37)
--- NOTE | 2024-08-12 18:54 | DVHPN2 ---
Progress Note - Dictate Date Seen: Aug 12, 2024 Medical Necessity Reason Pt with a Central, PICC or Fol: No vital signs Vital Sign Date Time Temp Pulse Resp B/P (MAP) Pulse Ox O2 Delivery O2 Flow Rate FiO2 08/12/24 16:49 98.7 79 20 115/76 (89) 99 98.7 08/12/24 08:00 Room Air* 0 21 Total Intake and Output 08/11/24 08/11/24 08/12/24 15:00 23:00 07:00 Intake Total 466 ml 50 ml Balance 466 ml 50 ml medications Current Medications Medications Dose Ordered Sig/Cruz Route Start Time Stop Time Status Last Admin Dose Admin Acetaminophen 650 mg Q6HP PRN PO 08/11/24 06:00 Acetaminophen/ Hydrocodone Bitart 1 tab Q4HP PRN PO 08/11/24 05:00 08/12/24 05:57 1 TAB Morphine Sulfate 4 mg Q4HPRN PRN IV 08/11/24 05:00 08/12/24 14:03 4 MG Ceftriaxone Sodium 50 ml @ 100 mls/hr Q24H IV 08/11/24 05:00 08/12/24 04:35 100 MLS/HR Sodium Chloride 1,000 ml @ 125 mls/hr Q8H IV 08/12/24 08:45 08/12/24 18:30 125 MLS/HR Levofloxacin 500 mg DAILY PO 08/13/24 10:00 objective scrotal pain and swelling laboratory and microbiology Laboratory Tests 08/12/24 06:40 Test 08/12/24 06:40 Range/Units Serum Glucose 98 74-106 mg/dL Assessment/Plan repeat scrotal US continue pain meds scrotal elevation Problems(with codes): (1) Varicocele (2) Sickle cell pain crisis (3) Scrotal pain Plan discussed with: Patient, Other NICOLÁS VELASQUEZ NP Aug 12, 2024 18:54 KAYLIN TILLMAN MD Aug 13, 2024 07:48
--- NOTE | 2024-08-12 21:03 | DVH ---
ULTRASOUND SCROTUM CLINICAL INDICATION: Testicular pain TECHNIQUE: High resolution scrotal ultrasound was performed with a linear transducer with duplex dopp ler and independent sales representative images acquired. Color Doppler with spectral analysis was performed/attempted of the testes. COMPARISON: US TESTICULAR ULTRASOUND on DOS: 08/10/24 FINDINGS: Right testicle: Normal in size, measuring 3.3 x 3.5 x 2.5 cm. The testicular parenchyma is homogeneou s. No testicular mass. Normal intratesticular blood flow. Mildly enlarged right epididymis with incr eased vascularity. Small right hydrocele Left testicle: Normal in size, measuring 3.4 x 2.2 x 2.4 cm. The testicular parenchyma is homogeneous . No testicular mass. Normal intratesticular blood flow. Increased vascularity of the left epididymis . IMPRESSION: 1. Enlarged and hypervascular right epididymis which could reflect epididymitis. 2. Small right hydrocele. 3. Normal bilateral testicles without torsion. 4. Increased vascularity of the left epididymis.
[2024-08-13 01:00] VITALS: BP 126/56; PULSE 76; RESP 15; TEMP 97.8; O2SAT 98
[2024-08-13 05:00] VITALS: BP 121/74; PULSE 75; RESP 17; TEMP 97.6; O2SAT 100
[2024-08-13 07:06] LABS: Basophils # (auto) 0.2 10 ^3/uL (0-0.2); Monocytes # (auto) 1.9 10 ^3/uL (0-1.3)
[2024-08-13 07:08] LABS: Basophils % (auto) 1.2 % (0.0-2.0); Eosinophils # (auto) 0.3 10 ^3/uL (0-0.8); Eosinophils % (auto) 1.8 % (0.0-7.0); Hematocrit 27.9 % (41.0-53.0); Lymphocytes # (auto) 3.8 10 ^3/uL (0.4-5.4); Lymphocytes % (auto) 22.7 % (10.0-50.0); Mean Corpuscular Hemoglobin 28.7 pg (28.0-32.0); Mean Corpuscular Hgb Conc. 35.9 g/dL (32.0-36.0); Mean Corpuscular Volume 80.1 fL (80.0-100.0); Monocytes % (auto) 11.5 % (0.0-12.0); Neutrophils # (auto) 10.5 10 ^3/uL (1.6-8.6); Neutrophils % (auto) 62.8 % (37.0-80.0); Nucleated Red Blood Cells % 0.4 %; Platelet Count (auto) 490 10^3/uL (140-450); Red Blood Cells 3.48 10^6/uL (4.5-5.90); Red Cell Distribution Width 15.8 % (11.8-14.3); White Blood Cell 16.7 10^3/uL (4.4-10.8)
[2024-08-13 07:16] LABS: Albumin 3.8 g/dL (3.2-4.8); Alkaline Phosphatase 91 U/L (46-116); Anion Gap 8 (5-15); Aspartate Aminotransferase 32 U/L (13-40); BUN/Creatinine Ratio 10.3 (10.0-20.0); Blood Urea Nitrogen 12 mg/dL (9-23); Calcium 9.4 mg/dL (8.7-10.4); Carbon Dioxide 25 mmol/L (20-31); Chloride 103 mmol/L (98-107); Glucose 96 mg/dL (74-106); Potassium 4.1 mmol/L (3.5-5.1); Sodium 136 mmol/L (136-145)
[2024-08-13 07:17] LABS: Bilirubin, Total 1.2 mg/dL (0.2-1.0); Total Protein 7.2 g/dL (5.7-8.2)
[2024-08-13 07:18] LABS: Alanine Aminotransferase 65 U/L (7-40)
--- NOTE | 2024-08-13 07:46 | DVHPN2 ---
Progress Note - Dictate Date Seen: Aug 13, 2024 Has the PT tested + for MRSA If YES, has PT been informed?: No Medical Necessity Reason Pt with a Central, PICC or Fol: No Medical Necessity Reason Right testicular pain Right epididymal orchitis Subjective "My pain is in my right ball and my kidneys" I live with sickle cell pain all the time Patient refused repeat scrotal US ordered. vital signs Vital Sign Date Time Temp Pulse Resp B/P (MAP) Pulse Ox O2 Delivery O2 Flow Rate FiO2 08/13/24 05:00 97.6 75 17 121/74 (90) 100 97.6 08/12/24 20:00 Room Air* 0 21 Total Intake and Output 08/12/24 08/12/24 08/13/24 15:00 23:00 07:00 Intake Total 2350 ml Balance 2350 ml medications Current Medications Medications Dose Ordered Sig/Cruz Route Start Time Stop Time Status Last Admin Dose Admin Acetaminophen 650 mg Q6HP PRN PO 08/11/24 06:00 Acetaminophen/ Hydrocodone Bitart 1 tab Q4HP PRN PO 08/11/24 05:00 08/13/24 06:22 1 TAB Morphine Sulfate 4 mg Q4HPRN PRN IV 08/11/24 05:00 08/12/24 23:10 4 MG Ceftriaxone Sodium 50 ml @ 100 mls/hr Q24H IV 08/11/24 05:00 08/13/24 06:13 100 MLS/HR Sodium Chloride 1,000 ml @ 125 mls/hr Q8H IV 08/12/24 08:45 08/13/24 06:20 125 MLS/HR Levofloxacin 500 mg DAILY PO 08/13/24 10:00 objective Uncircumcised male Testicle descended bilaterally. Left testicle normal. The right testicle is swollen and edematous and tender to palpation consistent with epididymo-orchitis laboratory and microbiology Laboratory Tests 08/13/24 06:39 Test 08/13/24 06:39 Range/Units Serum Glucose 96 74-106 mg/dL Problem List Sickle cell disease Microscopic hematuria Right epididymo-orchitis Assessment/Plan Scrotal support x2 weeks Levaquin 500 mg daily x2 weeks Outpatient follow-up in 2-3 weeks' time for repeat urine analysis CT scan was negative for any pathology Plan discussed with: Patient Total Time (mins): 15 KAYLIN TILLMAN MD Aug 13, 2024 07:45
[2024-08-13 08:00] VITALS: RESP 16
[2024-08-13 09:59] VITALS: BP 109/64; PULSE 102; RESP 16; TEMP 98.2; O2SAT 99
[2024-08-13] MEDS: levoFLOXacin 500 MG TAB PO SCH (10:19)
--- NOTE | 2024-08-13 11:09 | DVH ---
EXAM: XR Abdomen, 1 View CLINICAL INDICATION: right flank pain TECHNIQUE: Frontal supine view of the abdomen/pelvis. COMPARISON: None FINDINGS: GASTROINTESTINAL TRACT: Fecal retention in the colon consistent with constipation. No dilation. BONES/JOINTS: Unremarkable. No acute fracture. OTHER FINDINGS: . . . .. IMPRESSION: Fecal retention in the colon consistent with constipation.
--- NOTE | 2024-08-13 11:35 | DVH ---
INDICATION: right flank pain TECHNIQUE: Multiple real-time sonographic images of the kidneys and bladder were obtained. COMPARISON: None FINDINGS: RIGHT kidney measures 12.1 cm in length. No hydronephrosis. LEFT kidney measures 9.6 cm in length. Trace hydronephrosis. No large intraluminal masses are seen in the bladder. Prevoid bladder volume was 440 CC's. IMPRESSION: 1. Trace left renal hydronephrosis Bladder distension No renal calculi
[2024-08-13 13:00] VITALS: BP 123/70; PULSE 76; RESP 16; TEMP 98.1; O2SAT 98
--- NOTE | 2024-08-13 17:09 | DVHDSRES ---
Discharge Summary Date of Admission Resident Creating Document: IVIS SOLANO RESIDENT Aug 10, 2024 at 23:25 Date of Discharge: Aug 13, 2024 Admitting Diagnosis Epididymitis Varicocele Labs/Diagnostic Data: PATIENT: KARTIK SINGLETON ACCT: [id number] UNIT: [id number] : 2005 LOC: ER ROOM / BED: / AGE / SEX: 19 / M ADM STATUS: REG ER SERVICE 1621 ORDERING PHYSICIAN: CALLIE NEWMAN MD PROCEDURE(s): TESUS - TESTICULAR ULTRASOUND REASON: pain ORDER NUMBER(s): [id number], ACCESSION NUMBER(s): [id number] CLINICAL INFORMATION: 19 years old, Male; pain. TECHNIQUE: Grayscale sonographic imaging of the testicles and scrotal contents was performed , assisted by color doppler technique. Duplex doppler ultrasound of both testicles was performed. COMPARISON: None FINDINGS: Echogenicity of the kidneys is within normal limits bilaterally. Vascular flow in the kidneys appears to be normal. Right testicle measures 4 X 2.3 x 2.55 cm there are no focal lesions in the right kidney There appears to be a right inguinal varicocele that response to Valsalva maneuver Left testicle measures 3.45 x 2.32.5 cm there is normal vascular flow left epididymis measures 1.1 cm there appears to be a varicocele adjacent to the inferior pole of the left kidney right epididymis measures 1.4 cm. . IMPRESSION: 1. Bilateral varicoceles otherwise unremarkable study ATED BY: PASCUAL WILDE MD DICTATED DATE/TIME: 08/10/24 1744 SIGNED BY: PASCUAL WILDE MD PATIENT: KARTIK SINGLETON ACCT: [id number] UNIT: [id number] : 2005 LOC: OVERFLOW ROOM / BED: 1012-ER / A AGE / SEX: 19 / M ADM STATUS: ADM IN SERVICE 0451 ORDERING PHYSICIAN: SANDIE MACARIO PROCEDURE(s): CXR1 - CHEST XRAY 1 VIEW REASON: Pneummonia ORDER NUMBER(s): [id number], ACCESSION NUMBER(s): [id number] EXAM: XR Chest, 1 View CLINICAL INDICATION: Pneummonia TECHNIQUE: Frontal view of the chest. COMPARISON: CHEST XRAY 1 VIEW on DOS: 06/24/22, CXR1 on DOS: 06/24/22 FINDINGS: LUNGS AND PLEURAL SPACES: Unremarkable. No consolidation. No pneumothorax. HEART: Unremarkable. No cardiomegaly. MEDIASTINUM: Unremarkable. Normal mediastinal contour. BONES/JOINTS: Unremarkable. No acute fracture. OTHER FINDINGS: . None. . . .. IMPRESSION: No acute cardiopulmonary process. ATED BY: ALEC ROWELL MD DICTATED DATE/TIME: 08/11/24 06 PATIENT: KARTIK SINGLETON ACCT: [id number] UNIT: [id number] : 2005 LOC: OVERFLOW ROOM / BED: [address] [place] [address] / A AGE / SEX: 19 / M ADM STATUS: ADM IN SERVICE 1119 ORDERING PHYSICIAN: KAYLIN TILLMAN MD PROCEDURE(s): ABPL - CT AB PEL WO CON-NO ORAL OR IV REASON: hematuria ORDER NUMBER(s): [id number], ACCESSION NUMBER(s): [id number] Exam: CT CT AB PEL WO CON-NO ORAL OR IV History: hematuria Comparison Study: None Technique: Multidetector spiral CT of the abdomen and pelvis was performed from lung bases to pubic symphysis. Imaging was performed without IV contrast. Axial, coronal and sagittal multiplanar reformats were obtained from the axial data set by the technologist. Radiation dose : Abdomen/Pelvis: CTDIvol 5 mGy, DLP 358.56 mGy*cm. Findings: Evaluation of solid organs is limited due to lack of intravenous contrast use. Lung Bases: No acute or significant lung base finding. Normal heart size. No pleural or pericardial effusion. Liver: The liver is normal in size. No focal lesions. Gallbladder and biliary Tree: Cholelithiasis noted without secondary findings of cholecystitis or biliary obstruction. Spleen: Unremarkable Pancreas: The pancreas is grossly normal in appearance. Adrenal Glands: Unremarkable Kidneys: Kidneys are grossly normal without calculi or hydronephrosis. Bladder: Grossly unremarkable for degree of distention. Bowel: The stomach is grossly normal in appearance. Small bowel and colon are normal in caliber and distribution. The appendix is not visualized; however, no secondary findings of acute appendicitis identified. Ascites: Absent Lymphadenopathy: No mesenteric, retroperitoneal or periportal lymphadenopathy. Abdominal wall and Mesentery: Unremarkable. Vasculature: The visualized abdominal aorta is normal in size and caliber. Evaluation of abdominal and pelvic vessels is limited due to lack of intravenous contrast. Pelvic Organs: Unremarkable Musculoskeletal: No aggressive focal bony lesions, acute fractures or dislocation. IMPRESSION: 1. No acute abdominal or pelvic findings. Hydronephrosis or nephrolithiasis. Cholelithiasis noted. If concern persists consider follow-up exam with contrast. Radiation optimization: All CT scans at this facility use at least one of these dose optimization techniques: Automated exposure control mA and/or kV adjustment per patient size (includes targeted exams where dose is matched to clinical indication) or iterative reconstruction. HS:Y ATED BY: A[place]IN REDD MD DICTATED DATE/TIME: 08/11/24 1255 PATIENT: KARTIK SINGLETON ACCT: [id number] UNIT: [id number] : 2005 LOC: [facility] ROOM / BED: 0245 / A AGE / SEX: 19 / M ADM STATUS: ADM IN SERVICE 50 ORDERING PHYSICIAN: NICOLÁS VELASQUEZ NP PROCEDURE(s): TESUS - TESTICULAR ULTRASOUND REASON: pain ORDER NUMBER(s): [id number], ACCESSION NUMBER(s): [id number] ULTRASOUND SCROTUM CLINICAL INDICATION: Testicular pain TECHNIQUE: High resolution scrotal ultrasound was performed with a linear transducer with duplex doppler and claims representative images acquired. Color Doppler with spectral analysis was performed/attempted of the testes. COMPARISON: US TESTICULAR ULTRASOUND on DOS: 08/10/24 FINDINGS: Right testicle: Normal in size, measuring 3.3 x 3.5 x 2.5 cm. The testicular parenchyma is homogeneous. No testicular mass. Normal intratesticular blood flow. Mildly enlarged right epididymis with increased vascularity. Small right hydrocele Left testicle: Normal in size, measuring 3.4 x 2.2 x 2.4 cm. The testicular parenchyma is homogeneous. No testicular mass. Normal intratesticular blood flow. Increased vascularity of the left epididymis. IMPRESSION: 1. Enlarged and hypervascular right epididymis which could reflect epididymitis. 2. Small right hydrocele. 3. Normal bilateral testicles without torsion. 4. Increased vascularity of the left epididymis. ENT: KARTIK SINGLETON ACCT: [id number] UNIT: [id number] : 2005 LOC: [facility] ROOM / BED: [facility] A AGE / SEX: 19 / M ADM STATUS: ADM IN SERVICE 0937 ORDERING PHYSICIAN: IVIS SOLANO PROCEDURE(s): KUB - KUB ABDOMEN SINGLE VIEW REASON: right flank pain ORDER NUMBER(s): [id number], ACCESSION NUMBER(s): [id number] EXAM: XR Abdomen, 1 View CLINICAL INDICATION: right flank pain TECHNIQUE: Frontal supine view of the abdomen/pelvis. COMPARISON: None FINDINGS: GASTROINTESTINAL TRACT: Fecal retention in the colon consistent with constipation. No dilation. BONES/JOINTS: Unremarkable. No acute fracture. OTHER FINDINGS: . . . .. IMPRESSION: Fecal retention in the colon consistent with constipation. ENT: KARTIK SINGLETON ACCT: [id number] UNIT: [id number] : 2005 LOC: [facility] ROOM / BED: [address] [place] [address] AGE / SEX: 19 / M ADM STATUS: ADM IN SERVICE 0937 ORDERING PHYSICIAN: IVIS SOLANO PROCEDURE(s): KIDUS - KIDNEY REASON: right flank pain ORDER NUMBER(s): [id number], ACCESSION NUMBER(s): [id number] INDICATION: right flank pain TECHNIQUE: Multiple real-time sonographic images of the kidneys and bladder were obtained. COMPARISON: None FINDINGS: RIGHT kidney measures 12.1 cm in length. No hydronephrosis. LEFT kidney measures 9.6 cm in length. Trace hydronephrosis. No large intraluminal masses are seen in the bladder. Prevoid bladder volume was 440 CC's. IMPRESSION: 1. Trace left renal hydronephrosis Bladder distension No renal calculi ATED BY: BENTLEY ECHOLS MD DICTATED DATE/TIME: 08/13/24 1133 Laboratory Results Test 08/13/24 06:39 08/11/24 10:00 08/11/24 06:30 08/11/24 03:20 White Blood Count 16.7 10^3/uL (4.4-10.8) Red Blood Count 3.48 10^6/uL (4.5-5.90) Hemoglobin 10.0 g/dL (13.5-17.5) Hematocrit 27.9 % (41.0-53.0) Mean Corpuscular Volume 80.1 fL (80.0-100.0) Mean Corpuscular Hemoglobin 28.7 pg (28.0-32.0) Mean Corpuscular Hemoglobin Concent 35.9 g/dL (32.0-36.0) Red Cell Distribution Width 15.8 % (11.8-14.3) Platelet Count 490 10^3/uL (140-450) Mean Platelet Volume 8.5 fL (6.9-10.8) Neutrophils (%) (Auto) 62.8 % (37.0-80.0) Lymphocytes (%) (Auto) 22.7 % (10.0-50.0) Monocytes (%) (Auto) 11.5 % (0.0-12.0) Eosinophils (%) (Auto) 1.8 % (0.0-7.0) Basophils (%) (Auto) 1.2 % (0.0-2.0) Neutrophils # (Auto) 10.5 10 ^3/uL (1.6-8.6) Lymphocytes # (Auto) 3.8 10 ^3/uL (0.4-5.4) Monocytes # (Auto) 1.9 10 ^3/uL (0-1.3) Eosinophils # (Auto) 0.3 10 ^3/uL (0-0.8) Basophils # (Auto) 0.2 10 ^3/uL (0-0.2) Nucleated Red Blood Cells 0.4 % Sodium Level 136 mmol/L (136-145) Potassium Level 4.1 mmol/L (3.5-5.1) Chloride Level 103 mmol/L (98-107) Carbon Dioxide Level 25 mmol/L (20-31) Anion Gap 8 (5-15) Blood Urea Nitrogen 12 mg/dL (9-23) Creatinine 1.17 mg/dL (0.700-1.30) Glomerular Filtration Rate Calc 92 mL/min (>90) BUN/Creatinine Ratio 10.3 (10.0-20.0) Serum Glucose 96 mg/dL (74-106) Calcium Level 9.4 mg/dL (8.7-10.4) Total Bilirubin 1.2 mg/dL (0.2-1.0) Aspartate Amino Transferase (AST) 32 U/L (13-40) Alanine Aminotransferase (ALT) 65 U/L (7-40) Alkaline Phosphatase 91 U/L (46-116) Total Protein 7.2 g/dL (5.7-8.2) Albumin 3.8 g/dL (3.2-4.8) Urine Color Yellow (Yellow) Urine Clarity Cloudy (Clear) Urine pH 6.5 (5.0-9.0) Urine Specific [place] 1.005 (1.001-1.035) Urine Protein Negative (Negative) Urine Ketones Negative (Negative) Urine Blood Negative /uL (Negative) Urine Nitrite Negative (Negative) Urine Bilirubin Negative (Negative) Urine Urobilinogen 2 mg/dL (Negative) Urine Leukocyte Esterase 3+ /uL (Negative) Urine RBC 8 /hpf (0 - 3) Urine Microscopic WBC 146 /HPF (0-3) Urine Squamous Epithelial Cells None seen /hpf (<5) Urine Bacteria Few /hpf (None Seen) Urine Glucose Normal mg/dL (Normal) Urine Opiates Screen Neg (NEGATIVE) Urine Fentanyl Screen Neg (NEGATIVE) Urine Barbiturates Screen Neg (NEGATIVE) Urine Phencyclidine Screen Neg (NEGATIVE) Urine Amphetamines Screen Neg (NEGATIVE) Urine Benzodiazepines Screen Neg (NEGATIVE) Urine Cocaine Screen Neg (NEGATIVE) Urine Cannabinoids Screen Neg (NEGATIVE) Chlamydia trachomatis (DARREL) Negative (Negative) Neisseria gonorrhoeae (DARREL) Negative (Negative) Influenza Type A Antigen Negative (Negative) Influenza Type B Antigen Negative (Negative) SARS-CoV-2 Antigen (Rapid) Negative (NEGATIVE) Magnesium Level 2.0 mg/dL (1.6-2.6) Lactate Dehydrogenase 159 U/L (120-246) Hepatitis A IgM Antibody Negative Hepatitis B Surface Antigen Negative (Negative) Hepatitis B Core IgM Antibody Negative (Negative) Hepatitis C Antibody Negative (Negative) Test 2/5/25 16:31 Reticulocyte Count (auto) 0.31 % (0.5-1.5) Other Laboratory Tests 08/13/24 06:39 Brief Hx & Hospital Course: BRIEF HISTORY AND PHYSICAL This 19-year-old homosexual male with a past medical history of sickle cell anemia and gonorrhea presented to the ED with scrotal swelling. According to the patient, the scrotal swelling started on the left side of the scrotum gradually increasing in size. The patient did not take it seriously and did nothing. Then the right scrotum became involved. Patient took Tylenol without much improvement and then few days later he started having generalized pain from his sickle cell pain crisis thus prompting him to come to the ED. Per patient he has been admitted to the hospital multiple times due to being crisis, but has not been transfused. He also reports nausea, vomiting, shortness of breaths dysuria, frequency and urgency. Patient also mentioned that he is sexually active and his last sexual encounter was a week and half ago prior to the start of his symtoms. Initial vitals showed temperature 99.2, pulse 67, respiratory 16 blood pressure 115/76. blood work revealed WBC of 14.2, hemoglobin of 10.6. N: 133 cr: 1.32 with GFR of 79. Total bilirubin 1.4 AST 61 ALT 79. UA positive for UTI. Influenza A and B antigen negative COVID negative, gonorrhea and chlamydia both negative, HIV pending. US of the scrotum revealed Bilateral varicoceles. Hospital course His admission revealed an edematous scrotum tender on palpation and patient unable to move. Therefore patient was started on ceftriaxone adequate hydration and pain medication. Urology Urology saw patient and requested for CT abdomen we did not reveal any obstruction. Testicular ultrasound revealed Enlarged and hypervascular right epididymis which could reflect epididymitis. Small right hydrocele. Abdominal x-ray showed Fecal retention in the colon consistent with constipation. Patient was started on levofloxacin 500 mg daily in addition to the ceftriaxone. Morning patient told me that he is having pain in his right kidney. KUBshowed mild hydronephrosis. Then patient decided to leave AMA. I talked with patient to wait to complete his course of antibiotic as his WBC is 16.7. Patient agreed to stay. After about 2 hours, the nurse called to inform me that patient had left AMA. Examination General Appearance: Alert, Oriented X3, Cooperative, Mild distress. HEENT: Atraumatic, PERRLA, EOMI, Mucous membrane moist/pink Respiratory: Clear to auscultation, Normal air movement Cardiovascular: Regular rate, Normal S1, Normal S2, No murmurs, no chest wall tenderness Abdominal: NO distention, no tenderness, bowel sounds present, no scars noted Scrotum: Bilateral edema, mild erythema and tender on palpati-->improving Extremities: No clubbing, No cyanosis, No edema, Normal pulses, No tenderness/swelling Skin: No rashes, No breakdown, No significant lesion Neuro: Normal gait, Normal speech, Strength at 5/5 X4 ext, Normal tone, Sensation intact, Cranial nerves 3-12 NL, Reflexes 2+ Psych/Mental Status: Mental status NL, Mood NL Assessment Sepsis due to Epididymitis Painful Bilateral varicocele Sickle cell pain crisis UTI MALISSA due to VMN Hyponatremia leukocytosis Marijuana use disorder Patient left AMA Informed my attending, Dr. Kevin Consults/Reason for consult Stat urology consultation is requested for this patient with sickle cell crisis and scrotal pain with findings of varicoceles on ultrasound rule out testicular torsion Condition at Discharge: Undetermined Final Diagnosis/Problems List Assessment Sepsis due to Epididymitis Painful Bilateral varicocele Sickle cell pain crisis UTI MALISSA due to VMN Hyponatremia leukocytosis Marijuana use disorder left hydronephrosis Discharge Disposition: AMA Discharge Statement: "Patient was advised to return to the ER or call 911 if any headaches, dizziness, shortness of breath, chest pain, abdominal pain, bleeding, fevers, or worsening of medical condition. Patient was counseled about treatment plan, medications, possible side effects, patientverbalized understanding. All questions were answered to the best of my ability. This discharge took greater then 30 minutes in planning, reviewing documentation, counseling the patient, and discussing with other team members." ASSESSMENT ASSESSMENT Assessment Date of Service: Aug 13, 2024 Billing Provider: DEJA KEVIN MD Common Visit Codes: 70617-DDQ/OBS DISCH DAY >30min IVIS SOLANO RESIDENT Aug 13, 2024 17:09 DEJA KEVIN MD Aug 14, 2024 09:56
== END 2024-08-13 16:00 | disposition left against medical advice (07) | DRG 871 ==
LOC: ER 15:52 → OVERFLOW 23:22 → EAST 08-11 19:24
PROVIDERS: ADMIT Internal Medicine; ATTEND Internal Medicine
DX: A41.9 Sepsis, unspecified organism (principal); D57.00 Hb-SS disease with crisis, unspecified; N17.0 Acute kidney failure with tubular necrosis; E87.1 Hypo-osmolality and hyponatremia; N13.6 Pyonephrosis; Z53.29 Procedure and treatment not carried out because of patient's decision for other reasons; Z20.822 Contact with and (suspected) exposure to COVID-19; I86.1 Scrotal varices; N45.1 Epididymitis; F17.210 Nicotine dependence, cigarettes, uncomplicated; N45.3 Epididymo-orchitis; Z83.2 Family history of diseases of the blood and blood-forming organs and certain disorders involving the immune mechanism; Z79.899 Other long term (current) drug therapy
CPT/HCPCS: 36415; 71045; 74018; 74176; 76775; 76870; 80048; 80053; 80074; 80307; 81001; 83615; 83735; 85025; 85045; 87426; 87536; 87804; 96361; 96365; 96375; G0378; J2405